=== PATIENT | female | born 1935 | race Hispanic/Latino ===

== ENCOUNTER 2019-09-02 05:32 | Day surgery (SDC) | payer OTHER, MEDICARE ==
[2019-09-02] VITALS (9 sets, daily range): BP systolic 89–122; BP diastolic 44–61
[~2019-09-02] VITALS: Ht 162.6 cm; Wt 65.6 kg
[~2019-09-02 05:32] MED LIST: ASPI-556 PO; ATOR20TA65 PO; CARV3.12 PO; CARV6.25 PO; CLOP75TA32 PO; EMPA10TA PO; FAMO20TA8 PO; FURO20TA4 PO; ISOS30TA6 PO; LOSA25TA41 PO
--- NOTE | 2019-09-02 06:20 | NUR ---
PRE OP PT ARRIVED VIA W/C BY MEGHNA ROSEN. PT IN NO DISTRESS, PT ORIENTED TO ROOM, CALL LIGHT WITH IN REACH AND BED IN LOWEST POSITION. PT HAS DARK BROWN MOLE TO RT LOWER LEG AND SCRATCH TO LEFT LOWER LEG. PT CONNECTED TO IT NETWORK ADMINISTRATOR AND INSTRUCTED TO CALL FOR ASSISTANCE. PT VOICED UNDERSTANDING. MEDICATION LIST REVIEWED WITH PT BUT SOME BOTTLES MISSING AND PT REPORTED SHE ONLY TAKES CARVEDILOL TWICE PER DAY. WILL TRY TO CLARIFY WITH FAMILY
[2019-09-02] MEDS ORDERED: SODIUM CHLORIDE 0.9% 1000ML 1,000 ML IV ONE (06:22)
[2019-09-02 06:24] LABS: BASOPHILS % (AUTO) 0.5 % (0.0-5.0); EOSINOPHILS % (AUTO) 1.7 % (0.0-8.0); HEMATOCRIT 39.7 % (36-48); LYMPHOCYTES % (AUTO) 31.4 % (21.0-51.0); MEAN CORPUSCULAR HEMOGLOBIN 29.7 pg (27.0-33.0); MEAN CORPUSCULAR HGB CONC 31.7 g/dL (32.0-36.0); MEAN CORPUSCULAR VOLUME 93.6 fL (79-99); MONOCYTES % (AUTO) 8.8 % (3.0-13.0); NEUTROPHILS % (AUTO) 57.1 % (40.0-77.0); PLATELET COUNT (AUTO) 147 K/uL (130-400); RED BLOOD CELL COUNT(AUTO) 4.24 MIL/uL (4.00-5.50); RED CELL DISTRIBUTION WIDTH 13.8 % (11.0-15.5); WHITE BLOOD COUNT (AUTO) 9.9 K/uL (4.8-10.8)
[2019-09-02 06:32] LABS: CREATININE 0.9 mg/dL (0.5-1.5)
[2019-09-02 06:35] LABS: INR 0.96 (0.85-1.15); PROTHROMBIN TIME 10.4 SEC (9.6-11.6)
[2019-09-02] MEDS ORDERED: FISH1CAP50 PO (06:39)
[2019-09-02] MEDS ORDERED: LORA-705 PO (06:41)
[2019-09-02] MEDS ORDERED: MONT10TA26 PO (06:42)
--- NOTE | 2019-09-02 07:15 | NUR ---
MEDICATION CLARIFICATION SPOKE WITH DAUGHTER FLORIN SHE IS NOT SURE HOW PT TAKES MEDICATIONS. EXPLAINED TO THEM THE IMPORTANCE OF HAVING THE CORRECT LIST OF MEDICATIONS FOR MD. DAUGHTER VOICED UNDERSTANDING.
[2019-09-02] MEDS ORDERED: BUPIVACAINE/PF 0.25% 30ML VIAL IJ ONE (07:32)
[2019-09-02] MEDS ORDERED: CEFAZOLIN SODIUM 1 GM VIAL ONE (07:32)
[2019-09-02] MEDS ORDERED: MEPERIDINE-PF 25 MG/ML SYG ONE ×2 (07:32→08:01)
[2019-09-02] MEDS ORDERED: MIDAZOLAM HCL 1 MG/ML 2ML VIAL ONE ×2 (07:32→08:02)
[2019-09-02] MEDS ORDERED: LIDOCAINE HCL 1% MDV 50ML VIAL ONE (07:33)
--- NOTE | 2019-09-02 07:37 | NUR ---
FAST FOOD FRY COOK PT TAKEN TO FAST FOOD FRY COOK VIA BED BY LENORA MARTINEZ RN. PT IN NO DISTRESS AT THIS TIME. DAUGHTER NOTIFIED PT TAKEN TO PROCEDURE.
[2019-09-02] MEDS ORDERED: CARV3.12 PO (09:00)
--- NOTE | 2019-09-02 09:20 | NUR ---
REPORT RECEIVED REPORT FROM ROBERT SUH RN. PROCEDURE WENT WELL BATTERY CHANGED. PT RECEIVED ANCEF 2 GMS, DEMEROL 50MG AND VERSED 4 MG. V/S STABLE PER REPORT. WILL WAIT FOR PT TO BE BROUGHT BACK
[2019-09-02] MEDS ORDERED: ACETAMINOPHEN-CODEINE 300/30MG TAB PO PRN (09:30)
[2019-09-02] MEDS ORDERED: TRAM50TA4 PO (09:39)
--- NOTE | 2019-09-02 11:10 | NUR ---
discharge discharge instructions given to daughter rishabh over the phone. daughter voiced understanding
--- NOTE | 2019-09-02 11:45 | NUR ---
SITE CHECK SITE CHECK TO LEFT UPPER CHEST SOFT TO TOUCH. NO BLEEDING, OOZING NOTED TO SITE.
--- NOTE | 2019-09-02 12:21 | NUR ---
instructions [facility] to deliver monitoring device. pt given instruction on how to use and handbook also given
--- NOTE | 2019-09-02 13:00 | NUR ---
DISCHARGE PT TAKEN OUT VIA W/C IN NO DISTRESS. DISCHARGE INSTRUCTIONS GIVEN TO DAUGHTER AGAIN. UNDERSTANDING VOICED
== END 2019-09-02 13:00 | disposition home or self-care (01) ==
LOC: DAH 05:32 → CLH 05:32
PROVIDERS: ATTEND Internal Medicine Cardiovascular Disease
DX: I25.5 Ischemic cardiomyopathy (principal); I50.22 Chronic systolic (congestive) heart failure; E78.5 Hyperlipidemia, unspecified; E11.9 Type 2 diabetes mellitus without complications; I25.10 Atherosclerotic heart disease of native coronary artery without angina pectoris; Z79.82 Long term (current) use of aspirin; Z79.899 Other long term (current) drug therapy; Z86.73 Personal history of transient ischemic attack (TIA), and cerebral infarction without residual deficits
CPT/HCPCS: 33264; 36415; 80048; 82948; 85025; 85610; 85730; 93005; A4215; A4216; A4221; A4222; A4223 ×3; A4606; A4663; C1882; J0690; J2175 ×2; J2250 ×2; J3490 ×2; J7030; 99156; 99157